=== PATIENT | female | born 1955 | race Caucasian/White ===

== ENCOUNTER → 2019-11-03 | Outpatient (CLI) | payer BC | LOC: GMAJ 15:10 | PROVIDERS: ATTEND Family Medicine | DX: R10.13 Epigastric pain (principal) ==

== ENCOUNTER → 2020-01-09 | Outpatient (CLI) | payer BC | LOC: GMAJ 14:32 | PROVIDERS: ATTEND Family Medicine | DX: Z82.49 Family history of ischemic heart disease and other diseases of the circulatory system (principal) ==